=== PATIENT | male | born 1970 | race Caucasian/White ===

== ENCOUNTER 2017-09-12 02:10 | Emergency (ER) | payer OTHER ==
[~2017-09-12] VITALS: Ht 162.6 cm; Wt 59.0 kg
--- NOTE | 2017-09-12 04:24 | NUR ---
Pt's father arrived. Pt ambulated out of ER with steady gait and ACI given by primary RN
== END 2017-09-12 04:15 | disposition home or self-care (01) ==
LOC: ER 02:16
DX: J10.08 Influenza due to other identified influenza virus with other specified pneumonia (principal); J10.1 Influenza due to other identified influenza virus with other respiratory manifestations; J12.9 Viral pneumonia, unspecified; Z88.2 Allergy status to sulfonamides
CPT/HCPCS: 71045; 87400; A4663